=== PATIENT | male | born 1975 | race Two or more races ===

== ENCOUNTER 2017-12-21 17:23 | Inpatient (IN) ==
[2017-12-21] MEDS ORDERED: Sodium Chloride 0.9% 2 ML Flush PRN IV.FLUSH (20:19)
[2017-12-21] MEDS ORDERED: Post-op Orders (for Pharmacy) OTHER ONE (20:29)
[2017-12-21] MEDS ORDERED: Naloxone Inj 0.4 MG/ML Vial IV.PUSH PRN (20:29)
[2017-12-21] MEDS ORDERED: Ondansetron Liq 4 MG/5 ML UDC NG/OG PRN (20:32)
[2017-12-21] MEDS ORDERED: Dextrose 50% in Water 50 ML Vial IV.PUSH PRN (20:34)
[2017-12-21] MEDS ORDERED: Sennosides Liq 8.8 MG/5 ML UDC NG/OG SCH (21:00)
[2017-12-21] MEDS ORDERED: Docusate Sodium Liq 100 MG/10 ML UDC G-TUBE SCH (21:00)
[2017-12-21] MEDS ORDERED: Insulin NovoLOG Aspart Correctional Sugar Inj SQ SCH (21:00)
[2017-12-21 21:53] LABS: Hematocrit 31.2 % (39.0-51.0); Hemoglobin 10.4 gm/dL (13.0-17.0); Mean Corpuscular HGB Conc 33.3 % (32.0-36.0); Mean Corpuscular Hemoglobin 29.3 pg (27.0-34.0); Mean Corpuscular Volume 88.1 fL (80.0-100.0); Platelet Count 518 th/mm3 (150-450); Red Blood Count 3.55 mil/mm3 (4.50-5.90); Red Cell Distribution Width 15.9 % (11.6-17.2); White Blood Count 8.3 th/mm3 (4.0-11.0)
[2017-12-21 22:13] LABS: Alanine Aminotransferase 20 U/L (12-78); Albumin 1.9 g/dL (3.4-5.0); Anion Gap 8 meq/L (5-15); Aspartate Aminotransferase 22 U/L (15-37); Blood Urea Nitrogen 29 mg/dL (7-18); Calcium 8.6 mg/dL (8.5-10.1); Carbon Dioxide 29.2 meq/L (21.0-32.0); Chloride 105 meq/L (98-107); Glomerular Filtration Rate 49 mL/min (>89); Glucose,Random 97 mg/dL (74-106); Potassium 4.5 meq/L (3.5-5.1); Sodium 142 meq/L (136-145)
[2017-12-21 22:16] LABS: Alkaline Phosphatase 135 U/L (45-117); Total Protein 6.7 g/dL (6.4-8.2)
[2017-12-21] MEDS: Sennosides Liq 8.8 MG/5 ML UDC NG/OG SCH (22:49)
[2017-12-21] MEDS: Senna/Docusate Sodium 8.6/50 MG Tablet NG/OG SCH (22:49)
[2017-12-21] MEDS: Famotidine 20 MG Tablet NG/OG SCH (22:49)
[2017-12-21] MEDS: Sodium Chloride 0.9% 2 ML Flush BID IV.FLUSH SCH (22:50)
[2017-12-21] MEDS: Enoxaparin Inj 30 MG/0.3 ML Syringe SQ SCH (22:50)
[2017-12-21] MEDS: Insulin NovoLOG Aspart Correctional Sugar Inj SQ SCH (22:50)
--- NOTE | 2017-12-22 07:16 | XR ---
EXAM DATE: 12/22/2017 6:48 AM EDT AGE/SEX: 42 years / Male INDICATIONS: Shortness of breath. CLINICAL DATA: This is the patient's initial encounter. Patient reports that signs and symptoms have been present for 1 day and indicates a pain score of 0/10. MEDICAL/SURGICAL HISTORY: None. . Tracheostomy. COMPARISON: . FINDINGS: There is tracheostomy tube in place. There is a feeding tube directed into the stomach. The tip is no t seen on this chest x-ray. There are 2 chest tubes seen on the left side. A pneumothorax is not seen . Skin humera are seen over the mid and lower left chest. The lungs demonstrate diffuse mild increas ed interstitial markings. There are some focal density seen in the lateral left midlung. A significan t effusion is not seen. CONCLUSION: Tubes and lines in good position. Left-sided chest tube without evidence of pneumothorax. Underlying interstitial markings secondary to acute processes such as edema versus underlying more ch ronic interstitial disease.. Electronically signed by: Abdiel Macdonald MD 12/22/2017 7:14 AM EDT
--- NOTE | 2017-12-22 10:22 | P.DIET ---
Nutritional Evaluation Type of nutrition evaluation: initial Nutrition consult regarding: Tube Feeding Nutrition screening: [facility] [place] Screening comments: 12/21 [facility] [place] Objective - Diagnosis closed left actebular fx s/p retirement - Objective [place] body weight: 73 kg % IBW: 104 Body Weight Used for Calculations: Actual (75.7kg) Energy Needs - Lower Range (kCal/kg): 28 Energy Needs - Upper Range (kCal/kg): 33 Lower Limit kCal/kg (kCals): 2,120 Upper Limit kCal/kg (kCals): 2,498 Lower Limit Protein Factor (Grams per Kg): 1.2 Upper Limit Protein Factor (Grams per Kg): 1.5 Lower Protein Needs (Protein): 91 Upper Protein Needs (Protein): 109 Dietitian Reviewed in Medical Record: Curent medications, Intake & Output, Labs , Tube feeding Diet Order: TF only Objective Comments: PMH: N/A Assessment Assessment: Pt at nutritional risk r/t need for a TF for nutrition support. Nutritional needs as assessed above. Cureent TF Jevity 1.5 with goal rate 60 ml/hr provides 2160kcals, 92gms protein and 1094mls free water. This is adequate to meet pt's nutritional needs at this time. Will monitor TF tolerance, clinical course. Recommendations: TF Jevity 1.5 with goal rate 60 ml/hr Dietitian to Monitor: Lab values, Intake & Output, Tube feeding tolerance, Weight change, Medical course
[2017-12-22] MEDS: Insulin NovoLOG Aspart Correctional Sugar Inj SQ SCH ×4 (10:25→22:31)
[2017-12-22] MEDS: Sennosides Liq 8.8 MG/5 ML UDC NG/OG SCH ×2 (10:38→22:21)
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
[2017-12-22] MEDS: Methocarbamol 500 MG Tablet NG/OG SCH ×3 (10:52→19:52)
[2017-12-22] MEDS: QUEtiapine 100 MG Tablet NG/OG SCH ×3 (11:00→17:25)
[2017-12-22] MEDS: Gabapentin 300 MG Capsule NG/OG SCH ×3 (11:01→18:39)
[2017-12-22] MEDS: Famotidine 20 MG Tablet NG/OG SCH ×2 (11:01→22:21)
[2017-12-22] MEDS: Senna/Docusate Sodium 8.6/50 MG Tablet NG/OG SCH (11:01)
[2017-12-22] MEDS: Enoxaparin Inj 30 MG/0.3 ML Syringe SQ SCH ×2 (11:02→22:21)
[2017-12-22] MEDS: Sodium Chloride 0.9% 2 ML Flush BID IV.FLUSH SCH ×2 (11:03→22:22)
[2017-12-22] MEDS: Chlorhexidine Gluconate 0.12% Liq 15 ML UDC SWISH-SPIT SCH ×4 (12:53→22:21)
[2017-12-22] MEDS: Methocarbamol Inj 1,000 MG in Sodium Chlor 0.9% Inj 240 ML IV.SIG SCH ×2 (22:32→22:58)
[2017-12-23] MEDS: Chlorhexidine Gluconate 0.12% Liq 15 ML UDC SWISH-SPIT SCH ×7 (00:03→22:43)
[2017-12-23] MEDS: Methocarbamol Inj 1,000 MG in Sodium Chlor 0.9% Inj 240 ML IV.SIG SCH ×3 (05:48→22:45)
--- NOTE | 2017-12-23 07:21 | P.PNOP ---
Subjective Interval history: s/p transfer back from [facility] patient known to Francheska. previously undergone ORIF left acetabulum fx on and sent to [facility] for free flap and ORIF of left distal tibfib fx Physical Exam Vital signs: Vital Signs 12/22/17 08:00 12/22/17 09:37 12/22/17 09:39 Temperature 98.4 F Pulse Rate 91 H 94 H Respiratory Rate 17 18 Blood Pressure 134/62 Pulse Oximetry 91 L 92 L 12/22/17 12:00 12/22/17 16:00 12/22/17 17:18 Temperature 99.6 F 99.3 F Pulse Rate 96 H 87 84 Respiratory Rate 17 17 18 Blood Pressure 148/86 H 160/93 H Pulse Oximetry 95 97 12/22/17 20:00 12/22/17 22:44 12/23/17 00:00 Temperature 99 F 100.5 F H Pulse Rate 99 H 91 H 107 H Respiratory Rate 20 16 18 Blood Pressure 139/71 147/97 H Pulse Oximetry 95 95 97 12/23/17 04:04 Temperature Pulse Rate 105 H Respiratory Rate 22 Blood Pressure Pulse Oximetry 96 Intake & Output 12/22/17 12/23/17 12/23/17 18:59 06:59 18:59 Intake Total 240 / 240 1543 / 1543 Output Total 750 / 750 905 / 905 Balance -510 / -510 638 / 638 Weight 74.1 kg Intake: IV 500 / 500 Robaxin Inj 1,000 MG In NS Inj 500 / 500 240 ML @ 500 mls/hr IV.SIG Q8HR COUNT INCLUDES THE [facility] Rx#:[id number] Oral 240 / 240 Tube Feeding 543 / 543 Water Bolus Amount 500 / 500 Output: Urine 750 / 750 800 / 800 Wound Drainage 105 / 105 # 1 Left Posterior Back 80 / 80 # 2 Left Posterior Back 25 / 25 Other: Date of Last Bowel Movement 12/22/17 # Bowel Movements 1 Narrative: LLE: dressings clean and present on ankle. minimal drainage. pelvic dressings clean Results - Labs CBC & Chem 7: 12/21/17 21:40 12/21/17 21:40 Laboratory Results - last 24 hr 12/22/17 12/22/17 12/22/17 10:25 14:40 22:31 POC Glucose 146 H 144 H 104 - Imaging Impressions Chest X-Ray 12/22/17 06:48 CONCLUSION: Tubes and lines in good position. Left-sided chest tube without evidence of pneumothorax. Underlying interstitial markings secondary to acute processes such as edema versus underlying more chronic interstitial disease.. Assessment and Plan - Assessment and Plan 1) Left Acetabulum Fx s/p ORIF on 11/29/17 ([place]) 2) Left distal Tibia/Fibula Fx s/p ORIF and Free flap at [facility] -NWB to LLE -will order XRAYS today of left hip and left ankle -will plan to remove dressings tomorrow to eval skin -ortho surgeries should be complete at this time
[2017-12-23 08:48] LABS: Calcium 7.9 mg/dL (8.5-10.1); Carbon Dioxide 27.5 meq/L (21.0-32.0); Potassium 4.3 meq/L (3.5-5.1)
[2017-12-23] MEDS: Enoxaparin Inj 30 MG/0.3 ML Syringe SQ SCH ×2 (10:07→22:43)
[2017-12-23] MEDS: Gabapentin 300 MG Capsule NG/OG SCH ×3 (10:08→18:40)
[2017-12-23] MEDS: Sennosides Liq 8.8 MG/5 ML UDC NG/OG SCH ×2 (10:08→22:44)
[2017-12-23] MEDS: Sodium Chloride 0.9% 2 ML Flush BID IV.FLUSH SCH ×2 (10:09→22:44)
[2017-12-23] MEDS: QUEtiapine 100 MG Tablet NG/OG SCH ×3 (10:09→18:41)
[2017-12-23] MEDS: Famotidine 20 MG Tablet NG/OG SCH ×2 (10:09→22:52)
[2017-12-23] MEDS: Insulin NovoLOG Aspart Correctional Sugar Inj SQ SCH ×4 (10:10→23:00)
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
--- NOTE | 2017-12-23 10:22 | XR ---
EXAM DATE: 12/23/2017 12:00 AM EDT AGE/SEX: 42 years / Male INDICATIONS: Follow-up left ankle fracture. CLINICAL DATA: This is the patient's initial encounter. Patient reports that signs and symptoms have been present for 1 day and indicates a pain score of 0/10. MEDICAL/SURGICAL HISTORY: None. . Tracheostomy. ORIF left acetabulum. ORIF left tibia. COMPARISON: None. FINDINGS: I have no comparison views for follow-up. 4 images of the left ankle reveal the distal aspect 7 intramedullary shannan involving the femur and tibi a. There is an osteotomy involving the distal tibial metadiaphysis with intervening bone cement. Ther e is a short segment osteotomy involving the distal fibular diaphysis without bone cement. 2 threaded orthopedic screws traverse the distal tibia just proximal to the articular surface with the talus. O verall good alignment is observed. Numerous surgical clips noted. Soft tissue swelling is noted. CONCLUSION: Prior trauma with orthopedic hardware as detailed above. I have no prior exams to assess for any c hange. Electronically signed by: Arpan Soto MD 12/23/2017 10:21 AM EDT
--- NOTE | 2017-12-23 10:30 | XR ---
EXAM DATE: 12/23/2017 12:00 AM EDT AGE/SEX: 42 years / Male INDICATIONS: Follow-up left acetabular fracture. CLINICAL DATA: This is the patient's initial encounter. Patient reports that signs and symptoms have been present for 1 day and indicates a pain score of 0/10. MEDICAL/SURGICAL HISTORY: None. . Tracheostomy. ORIF left acetabulum. ORIF left tibia. COMPARISON: None. FINDINGS: 3 views of the pelvis shows 3 threaded orthopedic screws involving the intertrochanteric left hip. 3 orthopedic plates with anchoring screws involving the left acetabulum. Good alignment of the fracture s at the acetabulum and inferior pubic ramus. The remaining pelvis is unremarkable. Surgical clips ov erlie the left hip. Venous calcifications overlie the pelvis. CONCLUSION: Orthopedic hardware as detailed above with good alignment. Electronically signed by: Arpan Soto MD 12/23/2017 10:29 AM EDT
--- NOTE | 2017-12-23 13:00 | P.PNWCN ---
Wound Care Nurse Consult Description: Wound consult ordered by for wound management. Communicated with: Brendan CHAPMAN Additional information: Patient was not seen today. currently under the skilled care of and team.
[2017-12-23 14:54] LABS: Baso # (Auto) 0.1 th/mm3 (0.0-0.2); Baso % (Auto) 0.6 % (0.0-2.0); Eos # (Auto) 0.2 th/mm3 (0.0-0.4); Eos % (Auto) 1.3 % (0.0-4.0); Hematocrit 30.9 % (39.0-51.0); Hemoglobin 10.1 gm/dL (13.0-17.0); Lymph # (Auto) 1.2 th/mm3 (1.0-4.8); Lymph % (Auto) 9.7 % (9.0-44.0); Mean Corpuscular HGB Conc 32.6 % (32.0-36.0); Mean Corpuscular Hemoglobin 29.3 pg (27.0-34.0); Mean Platelet Volume 9.1 fL (7.0-11.0); Mono % (Auto) 8.6 % (0.0-8.0); Neut # (Auto) 9.6 th/mm3 (1.8-7.7); Neut % (Auto) 79.8 % (16.0-70.0); Platelet Count 518 th/mm3 (150-450); Red Blood Count 3.44 mil/mm3 (4.50-5.90); Red Cell Distribution Width 15.5 % (11.6-17.2)
[2017-12-23 16:25] LABS: Eosinophils 3 % (0-4); Lymphocytes 6 % (9-44); Monocytes 8 % (0-8)
[2017-12-23 16:26] LABS: Platelet Morphology Normal (Normal)
[2017-12-23] MEDS: Megestrol Acetate Liq 400 MG/10 ML UDC PO SCH (17:47)
[2017-12-24] MEDS: Chlorhexidine Gluconate 0.12% Liq 15 ML UDC SWISH-SPIT SCH ×6 (01:19→20:57)
[2017-12-24] MEDS: Methocarbamol Inj 1,000 MG in Sodium Chlor 0.9% Inj 240 ML IV.SIG SCH (06:04)
--- NOTE | 2017-12-24 07:40 | P.PNOP ---
Subjective Interval history: s/p ORIF left distal tibfib with free flap and STSG s/p ORIF left acetabulum no changes. resting comfortably Physical Exam Vital signs: Vital Signs 12/23/17 08:00 12/23/17 08:51 12/23/17 12:00 Temperature 98.1 F 98.1 F Pulse Rate 104 H 106 H 104 H Respiratory Rate 18 18 18 Blood Pressure 147/76 H 147/76 H Pulse Oximetry 93 L 93 L 93 L 12/23/17 16:00 12/23/17 20:00 12/23/17 21:43 Temperature 98.7 F 100.7 F H Pulse Rate 100 H 107 H 104 H Respiratory Rate 17 19 24 Blood Pressure 144/86 H 134/77 Pulse Oximetry 91 L 92 L 92 L 12/24/17 00:00 12/24/17 00:52 12/24/17 03:32 Temperature 98.7 F Pulse Rate 97 H 103 H Respiratory Rate 19 18 18 Blood Pressure 135/77 Pulse Oximetry 95 Intake & Output 12/23/17 12/24/17 12/24/17 18:59 06:59 18:59 Intake Total 700 / 700 730 / 730 Output Total 650 / 650 600 / 600 Balance 50 / 50 130 / 130 Intake: IV 250 / 250 250 / 250 Robaxin Inj 1,000 MG In NS Inj 250 / 250 250 / 250 240 ML @ 500 mls/hr IV.SIG Q8HR [facility]GAN Rx#:[id number] Oral 450 / 450 480 / 480 Output: Urine 650 / 650 600 / 600 Other: Date of Last Bowel Movement 12/22/17 12/23/17 # Bowel Movements 0 Narrative: LLE: hip incision uncovered. healed well. mild staple erythema. drain present from left chest. dressings removed from left ankle. skin flap healing with skin graft. Results - Labs CBC & Chem 7: 12/23/17 08:00 12/23/17 08:00 Laboratory Results - last 24 hr 12/23/17 12/23/17 12/23/17 08:00 08:00 23:00 WBC 12.0 H RBC 3.44 L Hgb 10.1 L Hct 30.9 L MCV 90.0 MCH 29.3 MCHC 32.6 RDW 15.5 Plt Count 518 H MPV 9.1 Prelim Diff (Auto) Slide review pending Neut % (Auto) 79.8 H Lymph % (Auto) 9.7 [place] % (Auto) 8.6 H Eos % (Auto) 1.3 Baso % (Auto) 0.6 Neut # (Auto) 9.6 H Lymph # (Auto) 1.2 [place] # (Auto) 1.0 H Eos # (Auto) 0.2 Baso # (Auto) 0.1 WBC Differential Manual diff final Seg Neuts % (Manual) 80 H Band Neuts % (Manual) 1 Lymphocytes % (Manual) 6 L Monocytes % (Manual) 8 Eosinophils % (Manual) 3 Basophils % (Manual) 2 Abs Neuts (Manual) 9.7 H Differential Comment . Platelet Estimate High H Platelet Morphology Normal Sodium 142 Potassium 4.3 Chloride 105 Carbon Dioxide 27.5 Anion Gap 10 BUN 26 H Creatinine 1.46 H Estimated GFR 52 L POC Glucose 111 H Random Glucose 115 H Calcium 7.9 L 12/24/17 07:31 WBC RBC Hgb Hct MCV MCH MCHC RDW Plt Count MPV Prelim Diff (Auto) Neut % (Auto) Lymph % (Auto) [place] % (Auto) Eos % (Auto) Baso % (Auto) Neut # (Auto) Lymph # (Auto) [place] # (Auto) Eos # (Auto) Baso # (Auto) WBC Differential Seg Neuts % (Manual) Band Neuts % (Manual) Lymphocytes % (Manual) Monocytes % (Manual) Eosinophils % (Manual) Basophils % (Manual) Abs Neuts (Manual) Differential Comment Platelet Estimate Platelet Morphology Sodium Potassium Chloride Carbon Dioxide Anion Gap BUN Creatinine Estimated GFR POC Glucose 116 H Random Glucose Calcium - Imaging Impressions Ankle X-Ray 12/23/17 00:00 CONCLUSION: Prior trauma with orthopedic hardware as detailed above. I have no prior exams to assess for any change. Pelvis X-Ray 12/23/17 00:00 CONCLUSION: Orthopedic hardware as detailed above with good alignment. Assessment and Plan - Assessment and Plan 1) Left Acetabulum Fx s/p ORIF on 11/29/17 ([place]) 2) Left distal Tibia/Fibula Fx s/p ORIF and Free flap at [facility] to LLE -elevate ankle -daily dressing changes to left ankle with xeroform/4x4/ABD/HARPAL -will order overhead trapeze today -DC humera of left hip today -ortho surgeries should be complete at this time
[2017-12-24] MEDS: Gabapentin 300 MG Capsule NG/OG SCH ×3 (09:21→17:17)
[2017-12-24] MEDS: QUEtiapine 100 MG Tablet NG/OG SCH ×3 (09:22→17:17)
[2017-12-24] MEDS: Megestrol Acetate Liq 400 MG/10 ML UDC PO SCH (09:22)
[2017-12-24] MEDS: Sennosides Liq 8.8 MG/5 ML UDC NG/OG SCH ×2 (09:22→20:58)
[2017-12-24] MEDS: Famotidine 20 MG Tablet NG/OG SCH ×2 (09:23→20:58)
[2017-12-24] MEDS: Sodium Chloride 0.9% 2 ML Flush BID IV.FLUSH SCH ×2 (09:23→20:58)
[2017-12-24] MEDS: Enoxaparin Inj 30 MG/0.3 ML Syringe SQ SCH ×2 (09:23→20:56)
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
[2017-12-24] MEDS: Melatonin 5 MG Tablet PO SCH (20:56)
[2017-12-25] MEDS: Chlorhexidine Gluconate 0.12% Liq 15 ML UDC SWISH-SPIT SCH ×5 (01:01→16:41)
[2017-12-25] MEDS: Megestrol Acetate Liq 400 MG/10 ML UDC PO SCH (08:51)
[2017-12-25] MEDS: Gabapentin 300 MG Capsule NG/OG SCH ×3 (08:55→17:11)
[2017-12-25] MEDS: Famotidine 20 MG Tablet NG/OG SCH ×2 (08:55→21:25)
[2017-12-25] MEDS: QUEtiapine 100 MG Tablet NG/OG SCH ×3 (08:55→17:11)
[2017-12-25] MEDS: Enoxaparin Inj 30 MG/0.3 ML Syringe SQ SCH ×2 (08:56→21:27)
[2017-12-25] MEDS: Sennosides Liq 8.8 MG/5 ML UDC NG/OG SCH ×2 (08:56→21:25)
[2017-12-25] MEDS: Sodium Chloride 0.9% 2 ML Flush BID IV.FLUSH SCH ×2 (08:57→21:27)
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
[2017-12-25] MEDS: Melatonin 5 MG Tablet PO SCH (21:25)
[2017-12-26] MEDS: Chlorhexidine Gluconate 0.12% Liq 15 ML UDC SWISH-SPIT SCH ×7 (01:17→21:15)
[2017-12-26 05:05] LABS: Baso # (Auto) 0.1 th/mm3 (0.0-0.2); Eos # (Auto) 0.2 th/mm3 (0.0-0.4); Eos % (Auto) 1.7 % (0.0-4.0); Hematocrit 26.3 % (39.0-51.0); Hemoglobin 9.1 gm/dL (13.0-17.0); Lymph # (Auto) 1.3 th/mm3 (1.0-4.8); Lymph % (Auto) 12.9 % (9.0-44.0); Mean Corpuscular HGB Conc 34.7 % (32.0-36.0); Mean Corpuscular Hemoglobin 29.9 pg (27.0-34.0); Mean Corpuscular Volume 86.1 fL (80.0-100.0); Mean Platelet Volume 8.9 fL (7.0-11.0); Mono # (Auto) 0.8 th/mm3 (0.0-0.9); Mono % (Auto) 7.7 % (0.0-8.0); Neut # (Auto) 7.9 th/mm3 (1.8-7.7); Neut % (Auto) 76.7 % (16.0-70.0); Platelet Count 457 th/mm3 (150-450); Red Blood Count 3.06 mil/mm3 (4.50-5.90); White Blood Count 10.3 th/mm3 (4.0-11.0)
[2017-12-26 05:19] LABS: Calcium 8.3 mg/dL (8.5-10.1); Carbon Dioxide 26.3 meq/L (21.0-32.0); Potassium 3.4 meq/L (3.5-5.1)
[2017-12-26] MEDS: QUEtiapine 100 MG Tablet NG/OG SCH ×3 (09:05→17:27)
[2017-12-26] MEDS: Enoxaparin Inj 30 MG/0.3 ML Syringe SQ SCH ×2 (09:06→21:15)
[2017-12-26] MEDS: Gabapentin 300 MG Capsule NG/OG SCH ×3 (09:06→17:29)
[2017-12-26] MEDS: Megestrol Acetate Liq 400 MG/10 ML UDC PO SCH (09:06)
[2017-12-26] MEDS: Sodium Chloride 0.9% 2 ML Flush BID IV.FLUSH SCH ×2 (09:07→21:16)
[2017-12-26] MEDS: Famotidine 20 MG Tablet NG/OG SCH ×2 (09:10→21:16)
[2017-12-26] MEDS: Sennosides Liq 8.8 MG/5 ML UDC NG/OG SCH ×2 (09:10→21:16)
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
[2017-12-26] MEDS: Melatonin 5 MG Tablet PO SCH (21:15)
[2017-12-27] MEDS: Chlorhexidine Gluconate 0.12% Liq 15 ML UDC SWISH-SPIT SCH ×6 (00:03→23:51)
[2017-12-27] MEDS: Sennosides Liq 8.8 MG/5 ML UDC NG/OG SCH ×2 (08:32→23:52)
[2017-12-27] MEDS: Famotidine 20 MG Tablet NG/OG SCH ×2 (08:33→21:15)
[2017-12-27] MEDS: Gabapentin 300 MG Capsule NG/OG SCH ×3 (08:33→17:00)
[2017-12-27] MEDS: QUEtiapine 100 MG Tablet NG/OG SCH ×3 (08:33→17:00)
[2017-12-27] MEDS: Enoxaparin Inj 30 MG/0.3 ML Syringe SQ SCH ×2 (08:34→23:51)
[2017-12-27] MEDS: Megestrol Acetate Liq 400 MG/10 ML UDC PO SCH (08:35)
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
[2017-12-27] MEDS: Sodium Chloride 0.9% 2 ML Flush BID IV.FLUSH SCH ×2 (12:57→23:52)
[2017-12-27] MEDS: Melatonin 5 MG Tablet PO SCH (21:15)
[2017-12-28] MEDS: Chlorhexidine Gluconate 0.12% Liq 15 ML UDC SWISH-SPIT SCH ×6 (00:48→21:21)
[2017-12-28] MEDS: QUEtiapine 100 MG Tablet NG/OG SCH ×3 (08:31→18:32)
[2017-12-28] MEDS: Famotidine 20 MG Tablet NG/OG SCH ×2 (08:31→21:20)
[2017-12-28] MEDS: Gabapentin 300 MG Capsule NG/OG SCH ×2 (08:31→12:00)
[2017-12-28] MEDS: Megestrol Acetate Liq 400 MG/10 ML UDC PO SCH (08:31)
[2017-12-28] MEDS: Sennosides Liq 8.8 MG/5 ML UDC NG/OG SCH ×2 (08:32→21:20)
[2017-12-28] MEDS: Sodium Chloride 0.9% 2 ML Flush BID IV.FLUSH SCH ×2 (08:33→21:21)
[2017-12-28] MEDS: Enoxaparin Inj 30 MG/0.3 ML Syringe SQ SCH ×2 (08:34→21:34)
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
[2017-12-28] MEDS: Ketorolac Inj 30 MG/ML (IVP) Vial IV.PUSH SCH ×2 (14:48→18:44)
[2017-12-28] MEDS: Gabapentin 400 MG Capsule NG/OG SCH ×2 (14:50→18:32)
[2017-12-28] MEDS: Melatonin 5 MG Tablet PO SCH (21:20)
[2017-12-29] MEDS: Ketorolac Inj 30 MG/ML (IVP) Vial IV.PUSH SCH ×2 (01:00→06:19)
[2017-12-29] MEDS: Chlorhexidine Gluconate 0.12% Liq 15 ML UDC SWISH-SPIT SCH ×6 (01:12→21:51)
[2017-12-29] MEDS: Enoxaparin Inj 30 MG/0.3 ML Syringe SQ SCH ×2 (09:16→21:51)
[2017-12-29] MEDS: Sennosides Liq 8.8 MG/5 ML UDC NG/OG SCH ×2 (09:17→21:53)
[2017-12-29] MEDS: Gabapentin 400 MG Capsule NG/OG SCH ×3 (09:17→17:27)
[2017-12-29] MEDS: Famotidine 20 MG Tablet NG/OG SCH ×2 (09:17→21:52)
[2017-12-29] MEDS: QUEtiapine 100 MG Tablet NG/OG SCH ×3 (09:17→17:27)
[2017-12-29] MEDS: Sodium Chloride 0.9% 2 ML Flush BID IV.FLUSH SCH ×2 (09:18→21:52)
[2017-12-29] MEDS: Megestrol Acetate Liq 400 MG/10 ML UDC PO SCH (09:18)
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
[2017-12-29] MEDS: Melatonin 5 MG Tablet PO SCH (21:52)
[2017-12-30] MEDS: Chlorhexidine Gluconate 0.12% Liq 15 ML UDC SWISH-SPIT SCH ×6 (01:02→21:52)
[2017-12-30 03:55] LABS: Baso # (Auto) 0.1 th/mm3 (0.0-0.2); Baso % (Auto) 1.4 % (0.0-2.0); Eos # (Auto) 0.3 th/mm3 (0.0-0.4); Eos % (Auto) 3.4 % (0.0-4.0); Hematocrit 27.8 % (39.0-51.0); Hemoglobin 9.6 gm/dL (13.0-17.0); Lymph # (Auto) 1.4 th/mm3 (1.0-4.8); Lymph % (Auto) 15.1 % (9.0-44.0); Mean Corpuscular HGB Conc 34.5 % (32.0-36.0); Mean Corpuscular Hemoglobin 29.4 pg (27.0-34.0); Mean Corpuscular Volume 85.4 fL (80.0-100.0); Mean Platelet Volume 7.4 fL (7.0-11.0); Mono # (Auto) 0.5 th/mm3 (0.0-0.9); Mono % (Auto) 5.2 % (0.0-8.0); Neut # (Auto) 7.1 th/mm3 (1.8-7.7); Neut % (Auto) 74.9 % (16.0-70.0); Platelet Count 510 th/mm3 (150-450); Red Blood Count 3.26 mil/mm3 (4.50-5.90); Red Cell Distribution Width 15.1 % (11.6-17.2); White Blood Count 9.5 th/mm3 (4.0-11.0)
[2017-12-30 04:27] LABS: Calcium 8.4 mg/dL (8.5-10.1); Carbon Dioxide 25.6 meq/L (21.0-32.0); Potassium 3.6 meq/L (3.5-5.1)
[2017-12-30] MEDS: Enoxaparin Inj 30 MG/0.3 ML Syringe SQ SCH ×2 (07:59→21:53)
[2017-12-30] MEDS: Megestrol Acetate Liq 400 MG/10 ML UDC PO SCH (08:00)
[2017-12-30] MEDS: Sennosides Liq 8.8 MG/5 ML UDC NG/OG SCH ×2 (08:00→21:54)
[2017-12-30] MEDS: Sodium Chloride 0.9% 2 ML Flush BID IV.FLUSH SCH ×2 (08:00→21:54)
[2017-12-30] MEDS: Famotidine 20 MG Tablet NG/OG SCH ×2 (08:00→21:53)
[2017-12-30] MEDS: Gabapentin 400 MG Capsule NG/OG SCH ×3 (08:00→17:19)
[2017-12-30] MEDS: QUEtiapine 100 MG Tablet NG/OG SCH ×3 (08:02→17:19)
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
--- NOTE | 2017-12-30 13:22 | P.DIET ---
Nutritional Evaluation Type of nutrition evaluation: follow-up Nutrition consult regarding: Tube Feeding [place] [facility] [place] [facility] Subjective Comments: PO intake 75% for breakfast and 50% for breakfast today. Objective - Diagnosis closed left actebular fx s/p [facility] [place] body weight: 73 kg % IBW: 104 Body Weight Used for Calculations: Actual (75.7kg) Energy Needs - Lower Range (kCal/kg): 28 Energy Needs - Upper Range (kCal/kg): 33 Lower Limit kCal/kg (kCals): 2,120 Upper Limit kCal/kg (kCals): 2,498 Lower Limit Protein Factor (Grams per Kg): 1.2 Upper Limit Protein Factor (Grams per Kg): 1.5 Lower Protein Needs (Protein): 91 Upper Protein Needs (Protein): 109 Dietitian Reviewed in Medical Record: Current diet, Curent medications, Intake & Output, Labs Diet Order: Regular Oral Diet Intake Amount: Good 75-90% Speech Therapy Recommendations: Yes (12/24 Regular thin liquids) Objective Comments: s/p [facility] [place] 11/28 Intubated 12/11 ORCHARD PRUNER placement; Passy-Jagjit Valve inplace 12/23 Megace started +1BM 12/27 Feeding - Current PO Supplement Current Supplement: Ensure Enlive Current Frequency of Supplement: Three times a day Current kCals Provided by Supplement: 350 Current Protein Provided by Supplement: 20 Assessment Assessment: Pt at nutritional risk r/t need for TF'ing-discontinued 12/23. Diet advanced per ST and pt w/continued improved po intake, now 50% and greater for meals. Noted Megace started 12/23. MD order for Ensure Enlive TID. Labs reviewed. Wt changes noted. Dietitian to follow as needed. Recommendations: 1. Noted Megace started 12/23 2. MD order for Ensure Enlive TID 3. Dietitian to follow as needed
[2017-12-30] MEDS: Melatonin 5 MG Tablet PO SCH (21:00)
[2017-12-31] MEDS: Chlorhexidine Gluconate 0.12% Liq 15 ML UDC SWISH-SPIT SCH ×6 (00:42→20:54)
[2017-12-31] MEDS: Megestrol Acetate Liq 400 MG/10 ML UDC PO SCH (10:05)
[2017-12-31] MEDS: Gabapentin 400 MG Capsule NG/OG SCH ×3 (10:06→18:48)
[2017-12-31] MEDS: QUEtiapine 100 MG Tablet NG/OG SCH ×3 (10:06→18:48)
[2017-12-31] MEDS: Sodium Chloride 0.9% 2 ML Flush BID IV.FLUSH SCH ×2 (10:06→23:28)
[2017-12-31] MEDS: Sennosides Liq 8.8 MG/5 ML UDC NG/OG SCH ×2 (10:06→20:57)
[2017-12-31] MEDS: Famotidine 20 MG Tablet NG/OG SCH ×2 (10:06→20:55)
[2017-12-31] MEDS: Enoxaparin Inj 30 MG/0.3 ML Syringe SQ SCH ×2 (10:06→20:55)
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
[2017-12-31] MEDS: Melatonin 5 MG Tablet PO SCH (23:23)
[2018-01-01] MEDS: Chlorhexidine Gluconate 0.12% Liq 15 ML UDC SWISH-SPIT SCH ×7 (04:16→23:55)
[2018-01-01] MEDS: Sennosides Liq 8.8 MG/5 ML UDC NG/OG SCH ×2 (08:29→21:48)
[2018-01-01] MEDS: Gabapentin 400 MG Capsule NG/OG SCH ×3 (08:30→18:52)
[2018-01-01] MEDS: Enoxaparin Inj 30 MG/0.3 ML Syringe SQ SCH ×2 (08:31→21:49)
[2018-01-01] MEDS: Megestrol Acetate Liq 400 MG/10 ML UDC PO SCH (08:31)
[2018-01-01] MEDS: QUEtiapine 100 MG Tablet NG/OG SCH ×3 (08:31→18:52)
[2018-01-01] MEDS: Famotidine 20 MG Tablet NG/OG SCH ×2 (08:32→21:48)
[2018-01-01] MEDS: Sodium Chloride 0.9% 2 ML Flush BID IV.FLUSH SCH ×2 (08:37→21:50)
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
[2018-01-01] MEDS: Melatonin 5 MG Tablet PO SCH (21:50)
[2018-01-02] MEDS: Chlorhexidine Gluconate 0.12% Liq 15 ML UDC SWISH-SPIT SCH ×5 (03:35→21:23)
[2018-01-02] MEDS: Enoxaparin Inj 30 MG/0.3 ML Syringe SQ SCH ×2 (09:10→21:23)
[2018-01-02] MEDS: Megestrol Acetate Liq 400 MG/10 ML UDC PO SCH (09:10)
[2018-01-02] MEDS: QUEtiapine 100 MG Tablet NG/OG SCH ×3 (09:10→17:26)
[2018-01-02] MEDS: Famotidine 20 MG Tablet NG/OG SCH ×2 (09:11→21:23)
[2018-01-02] MEDS: Gabapentin 400 MG Capsule NG/OG SCH ×3 (09:11→17:25)
[2018-01-02] MEDS: Sennosides Liq 8.8 MG/5 ML UDC NG/OG SCH ×2 (09:12→21:23)
[2018-01-02] MEDS: Sodium Chloride 0.9% 2 ML Flush BID IV.FLUSH SCH ×2 (09:12→21:24)
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
[2018-01-02] MEDS: Melatonin 5 MG Tablet PO SCH (21:23)
[2018-01-03] MEDS: Chlorhexidine Gluconate 0.12% Liq 15 ML UDC SWISH-SPIT SCH ×5 (00:04→15:28)
[2018-01-03] MEDS: Megestrol Acetate Liq 400 MG/10 ML UDC PO SCH (08:15)
[2018-01-03] MEDS: QUEtiapine 100 MG Tablet NG/OG SCH ×3 (08:15→17:00)
[2018-01-03] MEDS: Enoxaparin Inj 30 MG/0.3 ML Syringe SQ SCH ×2 (08:15→20:40)
[2018-01-03] MEDS: Gabapentin 400 MG Capsule NG/OG SCH ×3 (08:15→17:00)
[2018-01-03] MEDS: Famotidine 20 MG Tablet NG/OG SCH ×2 (08:15→20:41)
[2018-01-03] MEDS: Sennosides Liq 8.8 MG/5 ML UDC NG/OG SCH ×2 (08:16→20:41)
[2018-01-03] MEDS: Sodium Chloride 0.9% 2 ML Flush BID IV.FLUSH SCH ×2 (08:16→20:41)
--- NOTE | 2018-01-03 08:48 | P.PNOP ---
Subjective Interval history: s/p ORIF left acetabulum s/p IMN and orif left ankle s/p free flap and STSG left ankle doing well. states occasional pain but controlled Physical Exam Vital signs: Vital Signs 01/02/18 11:55 01/02/18 16:00 01/02/18 20:00 Temperature 98.1 F 97.7 F 98.1 F Pulse Rate 99 H 105 H 100 H Respiratory Rate 18 18 17 Blood Pressure 151/96 H 141/94 H 155/90 H Pulse Oximetry 97 96 96 01/03/18 00:00 01/03/18 00:04 01/03/18 01:25 Temperature 98.1 F Pulse Rate 91 H Respiratory Rate 18 20 20 Blood Pressure 162/94 H Pulse Oximetry 97 01/03/18 06:44 Temperature Pulse Rate Respiratory Rate 20 Blood Pressure Pulse Oximetry Intake & Output 01/02/18 01/03/18 01/03/18 18:59 06:59 18:59 Intake Total 580 / 580 Output Total 1625 / 1625 1800 / 1800 Balance -1625 / -1625 -1220 / -1220 Weight 75 kg Intake: Oral 580 / 580 Output: Urine 1625 / 1625 1800 / 1800 Other: Date of Last Bowel Movement 01/02/18 Narrative: LLE: hip incision clean and dry. healed well. dressings over ankle removed and wound visualized. skin graft healing and granulating. no drainage. nvi distally Results - Labs CBC & Chem 7: 12/30/17 03:26 12/30/17 03:26 Assessment and Plan - Assessment and Plan 1) Left Acetabulum Fx s/p ORIF on 11/29/17 ([place]) 2) Left distal Tibia/Fibula Fx s/p ORIF and Free flap at [facility] to LLE -elevate ankle -daily dressing changes to left ankle with xeroform/4x4/ABD/HARPAL -DC humera of left ford and knee as well as right thumb. do not remove humera around graft -ortho surgeries complete at this time
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
[2018-01-03] MEDS: Melatonin 5 MG Tablet PO SCH (20:41)
[2018-01-04] MEDS: QUEtiapine 100 MG Tablet NG/OG SCH ×3 (08:35→17:05)
[2018-01-04] MEDS: Megestrol Acetate Liq 400 MG/10 ML UDC PO SCH (08:36)
[2018-01-04] MEDS: Enoxaparin Inj 30 MG/0.3 ML Syringe SQ SCH ×2 (08:37→21:16)
[2018-01-04] MEDS: Sodium Chloride 0.9% 2 ML Flush BID IV.FLUSH SCH ×2 (08:37→21:17)
[2018-01-04] MEDS: Famotidine 20 MG Tablet NG/OG SCH ×2 (08:37→21:16)
[2018-01-04] MEDS: Sennosides Liq 8.8 MG/5 ML UDC NG/OG SCH ×2 (08:37→21:18)
[2018-01-04] MEDS: Gabapentin 400 MG Capsule NG/OG SCH ×3 (08:37→17:06)
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
[2018-01-04] MEDS: Melatonin 5 MG Tablet PO SCH (21:16)
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
[2018-01-05] MEDS: Famotidine 20 MG Tablet NG/OG SCH ×2 (08:21→20:20)
[2018-01-05] MEDS: QUEtiapine 100 MG Tablet NG/OG SCH ×3 (08:21→17:06)
[2018-01-05] MEDS: Gabapentin 400 MG Capsule NG/OG SCH ×3 (08:21→17:06)
[2018-01-05] MEDS: Sodium Chloride 0.9% 2 ML Flush BID IV.FLUSH SCH ×2 (08:22→20:20)
[2018-01-05] MEDS: Megestrol Acetate Liq 400 MG/10 ML UDC PO SCH (08:22)
[2018-01-05] MEDS: Enoxaparin Inj 30 MG/0.3 ML Syringe SQ SCH ×2 (08:22→20:19)
[2018-01-05] MEDS: Sennosides Liq 8.8 MG/5 ML UDC NG/OG SCH ×2 (08:22→20:19)
[2018-01-05] MEDS: Melatonin 5 MG Tablet PO SCH (20:20)
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
[2018-01-06] MEDS: Enoxaparin Inj 30 MG/0.3 ML Syringe SQ SCH ×2 (09:29→20:26)
[2018-01-06] MEDS: Megestrol Acetate Liq 400 MG/10 ML UDC PO SCH (09:30)
[2018-01-06] MEDS: Gabapentin 400 MG Capsule NG/OG SCH ×3 (09:30→17:21)
[2018-01-06] MEDS: Famotidine 20 MG Tablet NG/OG SCH ×2 (09:30→20:27)
[2018-01-06] MEDS: QUEtiapine 100 MG Tablet NG/OG SCH ×3 (09:30→17:22)
[2018-01-06] MEDS: Sodium Chloride 0.9% 2 ML Flush BID IV.FLUSH SCH ×2 (09:31→20:27)
[2018-01-06] MEDS: Sennosides Liq 8.8 MG/5 ML UDC NG/OG SCH ×2 (09:31→20:27)
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
--- NOTE | 2018-01-06 16:41 | XR ---
EXAM DATE: 01/06/2018 12:00 AM EDT AGE/SEX: 42 years / Male INDICATIONS: Left shoulder pain that started this morning. CLINICAL DATA: This is the patient's initial encounter. Patient reports that signs and symptoms have been present for 1 day and indicates a pain score of 7/10. MEDICAL/SURGICAL HISTORY: None. . Tracheostomy. ORIF left acetabulum. ORIF left tibia. COMPARISON: No prior exams available for comparison. FINDINGS: Today's examination there is irregularity involving the humeral head suspicious for a possible fractu re. This may be subacute to chronic. No definite joint dislocation is seen. The rest the bony structu res are grossly intact. There is an infiltrate in the base of the left lower lung. There are surgical clips in the left axillary area. CONCLUSION: Irregularity involving the humeral head suspicious for a fracture of unknown age. This may be a chron ic injury. This would need to be correlated with patient's history, physical, clinical exam. If this requires further evaluation, a noncontrast CT scan of the shoulder could be performed. Electronically signed by: Liam Espino MD 01/06/2018 4:40 PM EDT
[2018-01-06] MEDS: Melatonin 5 MG Tablet PO SCH (20:27)
[2018-01-07 04:18] LABS: Baso % (Auto) 0.7 % (0.0-2.0); Eos # (Auto) 0.2 th/mm3 (0.0-0.4); Eos % (Auto) 3.3 % (0.0-4.0); Hematocrit 31.4 % (39.0-51.0); Hemoglobin 10.4 gm/dL (13.0-17.0); Lymph # (Auto) 1.8 th/mm3 (1.0-4.8); Lymph % (Auto) 33.9 % (9.0-44.0); Mean Corpuscular Hemoglobin 28.8 pg (27.0-34.0); Mean Corpuscular Volume 87.3 fL (80.0-100.0); Mean Platelet Volume 6.7 fL (7.0-11.0); Mono # (Auto) 0.5 th/mm3 (0.0-0.9); Mono % (Auto) 9.2 % (0.0-8.0); Neut # (Auto) 2.7 th/mm3 (1.8-7.7); Neut % (Auto) 52.9 % (16.0-70.0); Platelet Count 591 th/mm3 (150-450); Red Cell Distribution Width 15.7 % (11.6-17.2); White Blood Count 5.2 th/mm3 (4.0-11.0)
[2018-01-07 04:37] LABS: Potassium 4.4 meq/L (3.5-5.1)
--- NOTE | 2018-01-07 07:07 | P.PNOP ---
Subjective Interval history: s/p free flap left distal tibia s/p ORIF left distal tibia and fibula s/p ORIF left acetabulum s/p left shoulder dislocation with humeral head fx doing well. no new complaints Physical Exam Vital signs: Vital Signs 01/06/18 08:00 01/06/18 12:00 01/06/18 16:00 Temperature 97.8 F 97.9 F 97.8 F Pulse Rate 93 H 114 H 108 H Respiratory Rate 16 18 18 Blood Pressure 159/96 H 143/92 H 143/96 H Pulse Oximetry 98 97 97 01/06/18 20:00 01/06/18 23:55 01/07/18 04:38 Temperature 97.9 F 98.3 F Pulse Rate 108 H 95 H Respiratory Rate 18 18 Blood Pressure 161/95 H 169/104 H 159/99 H Pulse Oximetry 99 96 Intake & Output 01/06/18 01/07/18 01/07/18 18:59 06:59 18:59 Intake Total 760 / 760 Output Total 1999 Balance -1240 / -1240 Weight 72 kg Intake: Oral 760 / 760 Output: Urine 1999 Other: Date of Last Bowel Movement 01/05/18 # Bowel Movements 1 Narrative: LUE: Passive forward flexion of shoulder to 100deg. nvi distally LLE: dressings clean and dry. intact. nvi Results - Labs CBC & Chem 7: 01/07/18 03:58 01/07/18 03:58 Laboratory Results - last 24 hr 01/07/18 01/07/18 03:58 03:58 WBC 5.2 RBC 3.60 L Hgb 10.4 L Hct 31.4 L MCV 87.3 MCH 28.8 MCHC 33.0 RDW 15.7 Plt Count 591 H MPV 6.7 L Neut % (Auto) 52.9 Lymph % (Auto) 33.9 [place] % (Auto) 9.2 H Eos % (Auto) 3.3 Baso % (Auto) 0.7 Neut # (Auto) 2.7 Lymph # (Auto) 1.8 [place] # (Auto) 0.5 Eos # (Auto) 0.2 Baso # (Auto) 0.0 WBC Differential . Differential Comment Auto diff final Sodium 139 Potassium 4.4 Chloride 105 Carbon Dioxide 27.0 Anion Gap 7 BUN 22 H Creatinine 1.09 Estimated GFR 73 L Random Glucose 102 Calcium 9.0 - Imaging Impressions Shoulder X-Ray 01/06/18 00:00 CONCLUSION: Irregularity involving the humeral head suspicious for a fracture of unknown age. This may be a chronic injury. This would need to be correlated with patient 's history, physical, clinical exam. If this requires further evaluation, a noncontrast CT scan of the shoulder could be performed. Assessment and Plan - Assessment and Plan 1) Left Acetabulum Fx s/p ORIF on 11/29/17 ([place]) 2) Left distal Tibia/Fibula Fx s/p ORIF and Free flap at [facility] 3) Left Shoulder Dislocation with Humeral Head Fx - nonop -NWB to LLE -elevate ankle -daily dressing changes to left ankle with xeroform/4x4/ABD/HARPAL -ok for PROM of left shoulder. NWB and no strenuous activity -xrays of left shoulder appear to be healing well -ortho surgeries complete at this time
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
[2018-01-07] MEDS: Sennosides Liq 8.8 MG/5 ML UDC NG/OG SCH ×2 (08:32→21:58)
[2018-01-07] MEDS: Megestrol Acetate Liq 400 MG/10 ML UDC PO SCH (08:32)
[2018-01-07] MEDS: Sodium Chloride 0.9% 2 ML Flush BID IV.FLUSH SCH ×2 (08:32→21:58)
[2018-01-07] MEDS: Gabapentin 400 MG Capsule NG/OG SCH ×3 (08:32→17:12)
[2018-01-07] MEDS: QUEtiapine 100 MG Tablet NG/OG SCH ×3 (08:33→17:12)
[2018-01-07] MEDS: Famotidine 20 MG Tablet NG/OG SCH ×2 (08:33→22:16)
[2018-01-07] MEDS: Enoxaparin Inj 30 MG/0.3 ML Syringe SQ SCH ×2 (08:33→22:15)
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
--- NOTE | 2018-01-07 12:14 | P.PNWCN ---
Wound Care Nurse Consult Description: Received wound management consult for L heel Communicated with: Giana Martinez RN [address] [place] Recommendation: Please follow current orders in place for wound care from Orthopedic surgeon. Please notify surgeon for any deterioration or questions regarding wound care. Additional information: Patient seen for wound management of L heel. There are orders in place for wound care to LLE from orthopedic PA Quinn Hu. PA has noted L ankle wound. Removed elastic wrap, rolled gauze and peeled back, ABD pad, and Xeroform in place to reveal wound to L Achilles heel that is connected to L ankle wound.Three Sutures are noted to periwound.Wound to L heel does presents with ~50% black eschar, ~20% yellow slough and ~30% red non granulation tissue. Sutures are present to periwound, and wound appears to be connected with L ankle wound which orthopedic PA has noted and written orders for. Applied dressing back in place and secured with rolled gauze and elastic wrap. RN to change dressing today when supplies available in room. Please notify orthopedic PA or surgeon regarding wound care questions, and deterioration or wound. Wound care inpatient is signing off.
[2018-01-07] MEDS: Melatonin 5 MG Tablet PO SCH (22:16)
[2018-01-08] MEDS: Megestrol Acetate Liq 400 MG/10 ML UDC PO SCH (08:30)
[2018-01-08] MEDS: Famotidine 20 MG Tablet NG/OG SCH ×2 (08:30→20:38)
[2018-01-08] MEDS: Enoxaparin Inj 30 MG/0.3 ML Syringe SQ SCH ×2 (08:30→20:37)
[2018-01-08] MEDS: Sodium Chloride 0.9% 2 ML Flush BID IV.FLUSH SCH ×2 (08:30→20:40)
[2018-01-08] MEDS: Gabapentin 400 MG Capsule NG/OG SCH ×3 (08:30→17:31)
[2018-01-08] MEDS: QUEtiapine 100 MG Tablet NG/OG SCH ×3 (08:30→17:31)
[2018-01-08] MEDS: Sennosides Liq 8.8 MG/5 ML UDC NG/OG SCH ×2 (08:31→20:37)
--- NOTE | 2018-01-08 10:45 | P.PNOP ---
Subjective Interval history: Resting comfortably with no new complaints Physical Exam Vital signs: Vital Signs 01/07/18 16:00 01/07/18 20:00 01/08/18 00:09 Temperature 97.7 F 97.9 F 97.9 F Pulse Rate 96 H 101 H 96 H Respiratory Rate 17 16 18 Blood Pressure 155/97 H 161/99 H 154/98 H Pulse Oximetry 98 96 96 01/08/18 04:00 01/08/18 08:00 Temperature 97.6 F Pulse Rate 90 Respiratory Rate 18 17 Blood Pressure 163/110 H Pulse Oximetry 98 Intake & Output 01/07/18 01/08/18 01/08/18 18:59 06:59 18:59 Intake Total 840 / 840 760 / 760 Output Total 700 / 700 2500 / 2500 Balance 140 / 140 -1740 / -1740 Weight 72 kg Intake: Oral 840 / 840 760 / 760 Output: Urine 700 / 700 2500 / 2500 Other: Date of Last Bowel Movement 01/07/18 01/07/18 01/07/18 # Bowel Movements 1 Narrative: Left lower extremity: No pain with hip or knee range of motion. Dressings taken down over tibia. Free muscle transfer and skin graft is healing well with no signs of necrosis. He does have a portion over the heel and Achilles that has some necrosis and tissue breakdown. He has intact sensation in all his toes and is able to move his toes slightly. Results - Labs CBC & Chem 7: 01/07/18 03:58 01/07/18 03:58 Assessment and Plan - Assessment and Plan 1) Left Acetabulum Fx s/p ORIF on 11/29/17 ([place]) 2) Left distal Tibia/Fibula Fx s/p ORIF and [facility] flap [facility] 3) Left Shoulder Dislocation with Humeral Head Fx - nonop -NWB to LLE -elevate ankle in position so heel floats. Avoid any continued pressure to the Achilles -daily dressing changes to left ankle with xeroform/4x4/ABD/HARPAL -ok for PROM of left shoulder. NWB and no strenuous activity -ortho surgeries complete at this time
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
[2018-01-08] MEDS: Melatonin 5 MG Tablet PO SCH (20:40)
[2018-01-09] MEDS: Enoxaparin Inj 30 MG/0.3 ML Syringe SQ SCH ×2 (08:27→21:04)
[2018-01-09] MEDS: QUEtiapine 100 MG Tablet NG/OG SCH ×3 (08:27→17:12)
[2018-01-09] MEDS: Famotidine 20 MG Tablet NG/OG SCH ×2 (08:27→21:04)
[2018-01-09] MEDS: Gabapentin 400 MG Capsule NG/OG SCH ×3 (08:27→17:12)
[2018-01-09] MEDS: Megestrol Acetate Liq 400 MG/10 ML UDC PO SCH (08:28)
[2018-01-09] MEDS: Sodium Chloride 0.9% 2 ML Flush BID IV.FLUSH SCH ×2 (08:28→21:05)
[2018-01-09] MEDS: Sennosides Liq 8.8 MG/5 ML UDC NG/OG SCH ×2 (08:28→21:05)
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
[2018-01-09] MEDS: Melatonin 5 MG Tablet PO SCH (21:04)
[2018-01-10] MEDS: Megestrol Acetate Liq 400 MG/10 ML UDC PO SCH (10:00)
[2018-01-10] MEDS: Sennosides Liq 8.8 MG/5 ML UDC NG/OG SCH ×2 (10:00→22:34)
[2018-01-10] MEDS: Gabapentin 400 MG Capsule NG/OG SCH ×3 (10:01→19:34)
[2018-01-10] MEDS: QUEtiapine 100 MG Tablet NG/OG SCH ×3 (10:01→19:34)
[2018-01-10] MEDS: Famotidine 20 MG Tablet NG/OG SCH ×2 (10:01→22:34)
[2018-01-10] MEDS: Enoxaparin Inj 30 MG/0.3 ML Syringe SQ SCH ×2 (10:10→22:33)
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
[2018-01-10] MEDS: Sodium Chloride 0.9% 2 ML Flush BID IV.FLUSH SCH ×2 (12:56→22:34)
[2018-01-10] MEDS: Melatonin 5 MG Tablet PO SCH (22:33)
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
[2018-01-11] MEDS: Gabapentin 400 MG Capsule NG/OG SCH ×3 (08:44→17:08)
[2018-01-11] MEDS: QUEtiapine 100 MG Tablet NG/OG SCH ×4 (08:44→20:05)
[2018-01-11] MEDS: Enoxaparin Inj 30 MG/0.3 ML Syringe SQ SCH ×2 (08:45→20:05)
[2018-01-11] MEDS: Sodium Chloride 0.9% 2 ML Flush BID IV.FLUSH SCH ×2 (11:20→20:07)
[2018-01-11] MEDS: Megestrol Acetate Liq 400 MG/10 ML UDC PO SCH (11:20)
[2018-01-11] MEDS: Sennosides Liq 8.8 MG/5 ML UDC NG/OG SCH ×2 (11:20→20:05)
[2018-01-11] MEDS: Famotidine 20 MG Tablet NG/OG SCH ×2 (11:20→20:06)
[2018-01-11] MEDS: Melatonin 5 MG Tablet PO SCH (20:05)
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
[2018-01-12] MEDS: Enoxaparin Inj 30 MG/0.3 ML Syringe SQ SCH ×2 (09:01→20:12)
[2018-01-12] MEDS: Gabapentin 400 MG Capsule NG/OG SCH ×3 (09:03→18:18)
[2018-01-12] MEDS: QUEtiapine 100 MG Tablet NG/OG SCH ×3 (09:03→18:18)
[2018-01-12] MEDS: Sodium Chloride 0.9% 2 ML Flush BID IV.FLUSH SCH ×2 (09:04→20:13)
[2018-01-12] MEDS: Sennosides Liq 8.8 MG/5 ML UDC NG/OG SCH ×2 (09:05→20:12)
[2018-01-12] MEDS: Famotidine 20 MG Tablet NG/OG SCH ×2 (09:05→20:13)
[2018-01-12] MEDS: Megestrol Acetate Liq 400 MG/10 ML UDC PO SCH (09:05)
[2018-01-12] MEDS: Melatonin 5 MG Tablet PO SCH (20:11)
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
[2018-01-13] MEDS: QUEtiapine 100 MG Tablet NG/OG SCH ×3 (09:29→17:53)
[2018-01-13] MEDS: Enoxaparin Inj 30 MG/0.3 ML Syringe SQ SCH ×2 (09:29→20:19)
[2018-01-13] MEDS: Megestrol Acetate Liq 400 MG/10 ML UDC PO SCH (09:29)
[2018-01-13] MEDS: Famotidine 20 MG Tablet NG/OG SCH ×2 (09:30→20:20)
[2018-01-13] MEDS: Gabapentin 400 MG Capsule NG/OG SCH ×3 (09:30→17:53)
[2018-01-13] MEDS: Sennosides Liq 8.8 MG/5 ML UDC NG/OG SCH ×2 (09:30→20:21)
[2018-01-13] MEDS: Sodium Chloride 0.9% 2 ML Flush BID IV.FLUSH SCH ×2 (09:33→20:20)
[2018-01-13] MEDS: Melatonin 5 MG Tablet PO SCH (20:20)
[2018-01-14] MEDS: Enoxaparin Inj 30 MG/0.3 ML Syringe SQ SCH ×2 (08:44→20:42)
[2018-01-14] MEDS: Megestrol Acetate Liq 400 MG/10 ML UDC PO SCH (08:45)
[2018-01-14] MEDS: Gabapentin 400 MG Capsule NG/OG SCH ×3 (08:46→17:01)
[2018-01-14] MEDS: Sodium Chloride 0.9% 2 ML Flush BID IV.FLUSH SCH ×2 (08:46→20:42)
[2018-01-14] MEDS: QUEtiapine 100 MG Tablet NG/OG SCH ×3 (08:47→17:01)
[2018-01-14] MEDS: Sennosides Liq 8.8 MG/5 ML UDC NG/OG SCH ×2 (08:47→20:43)
[2018-01-14] MEDS: Famotidine 20 MG Tablet NG/OG SCH ×2 (08:47→20:43)
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
[2018-01-14] MEDS: Melatonin 5 MG Tablet PO SCH (20:42)
[2018-01-15] MEDS: Megestrol Acetate Liq 400 MG/10 ML UDC PO SCH (08:01)
[2018-01-15] MEDS: Sennosides Liq 8.8 MG/5 ML UDC NG/OG SCH ×2 (08:02→20:42)
[2018-01-15] MEDS: Enoxaparin Inj 30 MG/0.3 ML Syringe SQ SCH ×2 (08:03→20:40)
[2018-01-15] MEDS: Sodium Chloride 0.9% 2 ML Flush BID IV.FLUSH SCH ×2 (08:04→20:42)
[2018-01-15] MEDS: QUEtiapine 100 MG Tablet NG/OG SCH ×5 (08:04→17:00)
[2018-01-15] MEDS: Gabapentin 400 MG Capsule NG/OG SCH ×5 (08:04→17:00)
[2018-01-15] MEDS: Famotidine 20 MG Tablet NG/OG SCH ×2 (08:04→20:41)
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
--- NOTE | 2018-01-15 17:53 | P.PNREH ---
Exam - Physical Examination Vital Signs / I&O: Vital Signs 01/14/18 20:00 01/15/18 00:00 01/15/18 08:00 Temperature 98.3 F 98.7 F 98.1 F Pulse Rate 101 H 107 H 100 H Respiratory Rate 17 17 18 Blood Pressure 137/90 123/93 H 158/98 H Pulse Oximetry 97 95 96 01/15/18 12:00 01/15/18 16:00 Temperature 97.2 F L 98.1 F Pulse Rate 102 H 104 H Respiratory Rate 19 19 Blood Pressure 134/92 H 157/96 H Pulse Oximetry 97 96 Intake & Output 01/14/18 01/15/18 01/15/18 18:59 06:59 18:59 Intake Total 720 / 720 480 / 480 480 / 480 Output Total 1425 / 1425 700 / 700 700 / 700 Balance -705 / -705 -220 / -220 -220 / -220 Weight 75.7 kg Intake: Oral 720 / 720 480 / 480 480 / 480 Output: Urine 1425 / 1425 700 / 700 700 / 700 Other: # Voids 3 4 Date of Last Bowel Movement 01/14/18 # Bowel Movements 1 Intake & Output 01/13/18 01/14/18 01/15/18 01/16/18 06:59 06:59 06:59 06:59 Intake Total 1710 / 1710 1800 / 1800 1200 / 1200 480 / 480 Output Total 1999 5040 / 5040 2125 / 2125 700 / 700 Balance -290 / -290 -3240 / -3240 -925 / -925 -220 / -220 Weight 74 kg 75.7 kg 75.7 kg General: No acute distress, Other (Sitting up in bedside chair) Respiratory: Lungs CTA, Non-labored respirations, BS equal, Other (Trach in place and capped) Gastrointestinal: Positive bowel sounds, Non-distended, Non-tender Date of Last Bowel Movement: 01/14/18 Cardiovascular: Normal rate, Regular rhythm Musculoskeletal: Swelling (Left LE dressing in place and foot and ankle edema) Psychiatric: Cooperative, Appropriate mood & affect Assessment and Plan (1) Multiple fractures Status: Acute Code(s): T07.XXXA - Unspecified multiple injuries, initial encounter (2) Closed head injury Status: Acute Code(s): S09.90XA - Unspecified injury of head, initial encounter Qualifiers: Encounter type: subsequent encounter Qualified Code(s): S09.90XD - Unspecified injury of head, subsequent encounter
[2018-01-15] MEDS: Melatonin 5 MG Tablet PO SCH (20:41)
[2018-01-16] MEDS: Gabapentin 400 MG Capsule NG/OG SCH ×3 (08:29→17:03)
[2018-01-16] MEDS: QUEtiapine 100 MG Tablet NG/OG SCH ×3 (08:29→17:03)
[2018-01-16] MEDS: Megestrol Acetate Liq 400 MG/10 ML UDC PO SCH (08:29)
[2018-01-16] MEDS: Enoxaparin Inj 30 MG/0.3 ML Syringe SQ SCH ×2 (08:29→22:17)
[2018-01-16] MEDS: Famotidine 20 MG Tablet NG/OG SCH ×2 (08:29→22:16)
[2018-01-16] MEDS: Sennosides Liq 8.8 MG/5 ML UDC NG/OG SCH ×2 (08:30→22:18)
[2018-01-16] MEDS: Sodium Chloride 0.9% 2 ML Flush BID IV.FLUSH SCH ×2 (08:32→22:17)
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
--- NOTE | 2018-01-16 12:54 | P.DCO ---
- Home Health Nursing Order: Wound care and dressing changes, Nursing assessment with vital signs Instructions: LLE: daily with xeroform/4x4/ABD/HARPAL wrap - Case Management Consult Yes - Certification I have seen patient Jesse Mcclure on 01/16/18. My clinical findings support the need for the requested home health care services because: Limited mobility due to disease progression, Deconditioned with increased weakness, High risk of falls I certify that my clinical findings support that this patient is homebound because: Post-op weakness, Impaired cognitive ability/safety
[2018-01-16] MEDS: Melatonin 5 MG Tablet PO SCH (22:16)
[2018-01-17] MEDS: Enoxaparin Inj 30 MG/0.3 ML Syringe SQ SCH (08:40)
[2018-01-17] MEDS: QUEtiapine 100 MG Tablet NG/OG SCH ×4 (08:42→17:25)
[2018-01-17] MEDS: Famotidine 20 MG Tablet NG/OG SCH (08:42)
[2018-01-17] MEDS: Gabapentin 400 MG Capsule NG/OG SCH ×4 (08:42→17:25)
[2018-01-17] MEDS: Sodium Chloride 0.9% 2 ML Flush BID IV.FLUSH SCH (08:44)
[2018-01-17] MEDS: Megestrol Acetate Liq 400 MG/10 ML UDC PO SCH (08:44)
[2018-01-17] MEDS: Sennosides Liq 8.8 MG/5 ML UDC NG/OG SCH (08:45)
[2018-01-17 13:53] VITALS: O2SAT 97
--- NOTE | 2018-01-17 14:41 | P.DCO ---
- Physical Therapy Order: Evaluate and treat, Improve ambulation, Strength and gait training - Home Health Nursing Order: Wound care and dressing changes, Nursing assessment with vital signs Instructions: LLE: daily with xeroform/4x4/ABD/HARPAL wrap - Case Management Consult Yes - Certification I have seen patient Jesse Mcclure on 01/17/18. My clinical findings support the need for the requested home health care services because: Limited mobility due to disease progression, Deconditioned with increased weakness I certify that my clinical findings support that this patient is homebound because: Post-op weakness, Impaired cognitive ability/safety
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
[2018-01-17 17:26] VITALS: BP 141/84; PULSE 100; RESP 19; TEMP 97.9
== END 2018-01-17 17:42 | disposition home health service (06) ==
LOC: N07 18:34
PROVIDERS: ADMIT Surgery; ATTEND Surgery